=== PATIENT | male | born 1950 | race Caucasian/White ===

== ENCOUNTER 2019-02-02 11:55 | Inpatient (IN) | payer MEDICARE, BC | END 2019-02-14 17:50 | LOC: EDH 11:55 → 3AH 02-08 01:01 → 2BH 02-08 03:09 → EDHIP 16:15 → 3AH 18:48 | PROC: 02H633Z Insertion of Infusion Device into Right Atrium, Percutaneous Approach (ICD-10-PCS; principal; ~2019-02-02) | PROC: 0JH63XZ Insertion of Tunneled Vascular Access Device into Chest Subcutaneous Tissue and Fascia, Percutaneous Approach (ICD-10-PCS; ~2019-02-02) | DX: N17.0 Acute kidney failure with tubular necrosis (principal); J96.01 Acute respiratory failure with hypoxia; G93.41 Metabolic encephalopathy; E87.1 Hypo-osmolality and hyponatremia; E44.1 Mild protein-calorie malnutrition; L03.115 Cellulitis of right lower limb; L03.113 Cellulitis of right upper limb; I13.0 Hypertensive heart and chronic kidney disease with heart failure and stage 1 through stage 4 chronic kidney disease, or unspecified chronic kidney disease; D62 Acute posthemorrhagic anemia; I50.9 Heart failure, unspecified; I11.0 Hypertensive heart disease with heart failure; E66.01 Morbid (severe) obesity due to excess calories; L73.2 Hidradenitis suppurativa; J44.9 Chronic obstructive pulmonary disease, unspecified; I25.5 Ischemic cardiomyopathy ==

== ENCOUNTER 2019-03-18 09:45 | Day surgery (SDC) | payer MEDICARE, OTHER ==
--- NOTE | 2019-03-18 08:30 | NUR ---
FLOWER SPOKE TO STACEY SERNA AT [facility]. PTS FLOWER WAS HELD LAST NIGHT AND THIS MORNING PER DR. MELA CHAPIN.
[~2019-03-18 09:45] MED LIST: ALBU8.5H8 IH; CARV6.2579 PO; FERR324T PO; LISI2.5T2 PO; METF-444 PO; METO2.5T2 PO; RIVA20TA PO; ROSU5TAB12 PO; TORS10TA18 PO; UMEC1DIS IH
[2019-03-18 10:10] VITALS: BP 122/67
--- NOTE | 2019-03-18 10:10 | NUR ---
PATIENT ARRIVED PATIENT ARRIVED TO DAY PATIENT VIA STRETCHER BY AMBULANCE. PATIENT AAOX3, RESPIRATIONS UNLABORED, VITAL SIGNS STABLE. PT DENIES ANY PAIN AT THIS TIME. PICC LINE TO LUE, DRESSING CLEAN/DRY/INTACT. PERMACATH TO RIGHT CHEST WALL, DRESSING CLEAN/DRY/INTACT. SANTIAGO CATHETER DRAINING DARK MAURICE URINE. PRESENT WITH PATIENT. PROCEDURE VERIFIED/CONFIRMED WITH PATIENT. ALL QUESTIONS/CONCERNS ADDRESSED.
[2019-03-18 10:12] LABS: BASOPHILS % (AUTO) 0.5 % (0.0-5.0); EOSINOPHILS % (AUTO) 9.8 % (0.0-8.0); HEMATOCRIT 26.2 % (42-54); LYMPHOCYTES % (AUTO) 12.9 % (21.0-51.0); MEAN CORPUSCULAR HGB CONC 32.8 g/dL (32.0-36.0); MEAN CORPUSCULAR VOLUME 91.7 fL (79-99); MONOCYTES % (AUTO) 10.5 % (3.0-13.0); NEUTROPHILS % (AUTO) 66.3 % (40.0-77.0); PLATELET COUNT (AUTO) 258 K/uL (130-400); RED BLOOD CELL COUNT(AUTO) 2.85 MIL/uL (4.50-6.20); RED CELL DISTRIBUTION WIDTH 19.3 % (11.0-15.5); WHITE BLOOD COUNT (AUTO) 7.2 K/uL (4.8-10.8)
[2019-03-18 10:26] LABS: INR 1.4 (0.85-1.15); PARTIAL THROMBOPLASTIN TIME 26.2 SEC (26.3-35.5); PROTHROMBIN TIME 14.5 SEC (9.6-11.6)
--- NOTE | 2019-03-18 11:13 | NUR ---
LABS INFORMED DR. PLAZA OF ABNORMAL H/H/PLATELET LEVEL/PT/INR/PTT. NO ORDERS RECEIVED. PROCEED WITH PLANNED PROCEDURE.
[2019-03-18] MEDS ORDERED: LIDOCAINE HCL 1% MDV 50ML VIAL ONE (15:02)
--- NOTE | 2019-03-18 16:00 | NUR ---
CATHETER RIGHT UPPER CHEST PERMACATH REMOVED AT BEDSIDE BY DR. FOSTER. PATIENT TOLERATED WELL. PRESSURE APPLIED BY ZENON JAYESH. STERILE DRESSING APPLIED SITE. PERMACATHETER INTACT UPON REMOVAL. NO BLEEDING OR HEMATOMA NOTED. HOB AT 45 DEGREES. VS FOLLOWS POST PROCEDURE BP 117/55, HR 73 RES 16,
[2019-03-18 16:05] VITALS: BP 117/52
[2019-03-18 16:20] VITALS: BP 122/52
--- NOTE | 2019-03-18 16:34 | NUR ---
report report called to Ridge IBARRA at [facility].
--- NOTE | 2019-03-18 16:52 | NUR ---
REPORT RECEIVED CALL FROM [facility] PER RADIOLOGIST CHEST XRAY IS NORMAL.
--- NOTE | 2019-03-18 17:20 | NUR ---
DC PT DC BACK TO [facility] VIA EMS, PT AWAKE AND ALERT,NO DISTRESS NOTED. RIGHT UPPER CHEST DRESSING DRY AND I NTACT, NO HEMATOMA OR BLEEDING NOTED PICC LINE IN PLACE, FC IN PLACE.
== END 2019-03-18 17:20 ==
LOC: CLH 09:45
PROVIDERS: ATTEND Internal Medicine Nephrology
DX: Z49.01 Encounter for fitting and adjustment of extracorporeal dialysis catheter (principal); J44.9 Chronic obstructive pulmonary disease, unspecified; E66.01 Morbid (severe) obesity due to excess calories; G47.33 Obstructive sleep apnea (adult) (pediatric); I48.91 Unspecified atrial fibrillation; I13.0 Hypertensive heart and chronic kidney disease with heart failure and stage 1 through stage 4 chronic kidney disease, or unspecified chronic kidney disease; E11.22 Type 2 diabetes mellitus with diabetic chronic kidney disease; N18.3 Chronic kidney disease, stage 3 (moderate); I50.32 Chronic diastolic (congestive) heart failure; I25.5 Ischemic cardiomyopathy; E11.40 Type 2 diabetes mellitus with diabetic neuropathy, unspecified; I25.10 Atherosclerotic heart disease of native coronary artery without angina pectoris; Z88.5 Allergy status to narcotic agent; Z91.018 Allergy to other foods; Z95.5 Presence of coronary angioplasty implant and graft; F17.220 Nicotine dependence, chewing tobacco, uncomplicated; Z79.899 Other long term (current) drug therapy; Z72.89 Other problems related to lifestyle; Z79.01 Long term (current) use of anticoagulants; Z98.890 Other specified postprocedural states
CPT/HCPCS: 36415; 36589; 71045; 82948 ×2; 85025; 85610; 85730; A4606; A4663; A6206; J3490